=== PATIENT | female | born 1985 | race Caucasian/White ===

== ENCOUNTER 2021-04-05 20:45 | Emergency (ER) | payer OTHER ==
[~2021-04-05] VITALS: Ht 160 cm; Wt 74.8 kg
[2021-04-05] MEDS ORDERED: TRIAMCINOLONE A15 G1 TOP (20:59)
[2021-04-05 21:16] VITALS: BP 120/80
== END 2021-04-05 21:17 | disposition home or self-care (01) ==
LOC: M.ERS 20:45
DX: T63.441A Toxic effect of venom of bees, accidental (unintentional), initial encounter (principal); Z88.1 Allergy status to other antibiotic agents; Y92.89 Other specified places as the place of occurrence of the external cause